=== PATIENT | male | born 1945 | race Caucasian/White ===

== ENCOUNTER 2019-06-02 16:18 | Observation (INO) ==
[2019-06-02] MEDS ORDERED: Naloxone 0.4 MG/ML INJ IVP PRN (23:16)
--- NOTE | 2019-06-02 23:31 | Internal Med History&Physical ---
Date of Encounter: 06/02/19 Time of Encounter: 22:57 Internal Medicine - H&P: HPI Chief complaint: ESRD Admitted From: Hospital to Hospital Transfer Plans for Post Hospital Care: Home History of present illness: Mr. Horowitz is a 74 year old male Patient presented from [facility] with ESRD. He states that yesterday he had a peritoneal dialysis catheter placed, and sent home. This morning he woke up and felt wheezy and had a heaviness in his chest. His symptoms are worse with laying down. He came to [facility] for further evaluation. [facility] vitals signs: BP 126/87, Temp 97.6, heart rate 76, respiratory rate 20, O2 sat 99% on 2L CBC: WBC 16.9, Hemoglobin 13.4, Hematocrit 40.1, Platelets 364 BMP: Sodium 136, Potassium 5.4, Chloride 102, CO2 24.2, BUN 75, Creatinine 4.66, Glucose 135 LFTs: AST19, ALT12, AP 78, Tbili 0.28 Urinalysis: Negative for infection BNP [id number] Chest x-ray: CHF with interstitial pulmonary edema EKG at [facility]: Normal sinus rhythm, rate 74, QTC 472 no ischemic changes He was transferred to [facility] for further management. Upon my assessment patient is resting comfortably in the hospital bed in no acute distress. He denies chest pain, shortness of breath, abdominal pain, nausea, vomiting, diarrhea and constipation. He denies smoking, alcohol and other drugs. He still produces some urine. He is a full code. Past Med Surg Social Fam HX - Past Medical History Medical history: hypertension, myocardial infarction Additional medical history: Stroke. gout. heart stents. VT Psychiatric history: no psych history - Past Surgical History Additional surgical history: heart cath. heart stents x 2. kidney stent. defibrillator - Social History Smoking Status: Former smoker Smokeless Tobacco Status: No Alcohol use: none Drug use: none - Family History Mother Adopted: No Family Member Ethnicity: Non- Living Status: Age at : 98 Hx Family Cardiac Disorders: Yes Hx Family Respiratory Disorders: No Hx Family Cancer: No Hx Family GI Disorders: No Hx Family Musculoskeletal Disorders: Yes Father Hx Family Cardiac Disorders: Yes (Heart attack) Brother Hx Family Cardiac Disorders: Yes (Heart attack) Internal Medicine - H&P: Meds Allopurinol [Zyloprim 100 MG] 100 mg PO DAILY 06/01/19 [History] Amiodarone HCl 200 mg PO DAILY 06/01/19 [History] Amlodipine Besylate 5 mg PO DAILY 06/01/19 [History] Aspirin [Adult Aspirin Regimen] 81 mg PO DAILY 06/01/19 [History] Carvedilol 12.5 mg PO BID 06/01/19 [History] Cod Liver Oil 1 cap PO DAILY 06/01/19 [History] Diphenhydramine HCl [Allergy] 25 mg PO QPM 06/01/19 [History] Docusate [Colace] 100 mg PO DAILY 06/01/19 [History] Furosemide [Lasix] 20 mg PO BID 06/01/19 [History] HYDROcodone/Acet 5/325 mg [[place] 5-325 mg] 1 tab PO Q6H PRN 7 Days #10 tab 06/01/19 [Rx] Multivitamin [One Daily] 1 tab PO DAILY 06/01/19 [History] Allergy/AdvReac Type Severity Reaction Status Date / Time Iodinated Contrast- Oral and Allergy Rash Verified 06/01/19 10:58 IV Dye All Systems PM: A 10-system review of systems was performed and is negative for pertinent findings except as documented above in the HPI. - Constitutional Vitals: Temp Pulse Resp BP Pulse Ox 98.0 F 92 16 145/88 94 06/02/19 21:28 06/02/19 21:28 06/02/19 21:28 06/02/19 21:28 06/02/19 22:20 General appearance: Present: cooperative, A&O X 3, pleasant, no acute distress, answers questions appropriately Exam: - - Head Head exam: Present: normal inspection - Eye Eye exam: Present: EOMI, normal appearance - Respiratory Respiratory exam: Present: CTAB. Absent: rales, respiratory distress, rhonchi, wheezes - Cardiovascular Cardiovascular exam: Present: RRR, systolic murmur. Absent: diastolic murmur Additional comments: Grade 2 systolic murmur - GI/Abdominal GI/Abdominal exam: Present: normal bowel sounds, soft. Absent: tenderness - Extremities Exam Extremities exam: Present: warm, radial pulses palpable and symmetrical. Absent: calf tenderness, pedal edema, tenderness - Neurological Exam Neurological exam: Present: no focal deficits, strengths equal and symetr throughout. Absent: motor sensory deficit, facial droop, speech deficit - Skin Skin exam: Present: dry, normal color, warm - Assessment and Plan (1) End stage renal disease Current Visit: Yes Status: Acute Assessment and plan: PD catheter placed 1 day ago. Patient has worsening renal function, low urine output. Nephrology consulted from [facility] for likely early dialysis due to fluid accumulation. Follow up nephrology recommendations. NPO (2) CHF (congestive heart failure) Current Visit: Yes Status: Acute Assessment and plan: As suspected on x-ray, positive for CHF and pulmonary edema. No previous workup in our system regarding cardiac workup. Echocardiogram in the AM Hold off on lasix due to worsening renal function Qualifiers: Heart failure type: unspecified Heart failure chronicity: unspecified Qualified Code(s): I50.9 - Heart failure, unspecified (3) Hyperkalemia Current Visit: Yes Status: Acute Assessment and plan: Potassium 5.4 at [facility]. Likely elevated potassium level will need to be addressed with potential dialysis if it continues to rise. Repeat a.m. labs Continue to monitor (4) Gout Current Visit: Yes Status: Acute Assessment and plan: Patient has history of gout, medication being held secondary to renal function Check uric acid level Continue to hold medications until dialysis plan established Qualifiers: Gout site: toe Gout etiology: unspecified cause Chronicity: chronic Laterality: unspecified laterality Presence of tophus: without tophus Qualified Code(s): M1A.9XX0 - Chronic gout, unspecified, without tophus (tophi) (5) DVT prophylaxis Current Visit: Yes Status: Acute Assessment and plan: SCDs - Time Spent With Patient Total time spent is greater than 50% in coordination of care (as documented) at patient's floor/unit and/or counseling patient: Greater than 35 minutes
[2019-06-02] MEDS ORDERED: Acetaminophen 325 MG TABLET PO PRN (23:46)
[2019-06-03 03:42] LABS: Hematocrit 38.3 % (37.5-50.1); Hemoglobin 12.2 g/dL (12.9-16.9); Mean Corpuscular HGB Conc 31.9 g/dL (31.6-35.5); Mean Corpuscular Hemoglobin 28.9 pg (28.0-33.3); Mean Corpuscular Volume 90.8 fL (83.0-100.0); Mean Platelet Volume 9.9 fL (9.4-12.4); Red Blood Count 4.22 M/mcL (4.19-5.50); Red Cell Distribution Width 14.8 % (11.5-14.5); White Blood Count 15.1 K/mcL (4.3-11.1)
[2019-06-03 04:00] LABS: Albumin 3.1 g/dL (3.5-5.7); Albumin/Globulin Ratio 1.1 (1.1-2.2); Bilirubin,Total 0.3 mg/dL (0.3-1.0); Calcium 9.4 mg/dL (8.6-10.3); Globulin 2.7 g/dL (2.4-3.5); Magnesium 2.3 mg/dL (1.6-2.6); Phosphorous 3.7 mg/dL (2.7-4.5); Potassium 4.6 mEq/L (3.5-5.1); Total Protein 5.8 g/dL (6.4-8.9)
[2019-06-03] MEDS ORDERED: *HR* HYDROcodone/Acet 5/325 mg TABLET PO PRN ×2 (14:28→14:46)
--- NOTE | 2019-06-03 14:29 | Internal Med Progress Note ---
Hospitalist Progress Note - Encounter Date of Encounter: 06/03/19 Time of Encounter: 12:25 - Subjective Interval History: Pt was seen at bedside. looking comfortable. no chest pain, denies any SOB,orthopena curently. Has been on RA and stable. Denies any fever, chills. No overnight evetns. - Exam Vitals: Temp Pulse Resp BP Pulse Ox 98.0 F 76 16 129/81 95 06/03/19 11:42 06/03/19 11:42 06/03/19 11:42 06/03/19 11:42 06/03/19 11:42 Exam: General: Alert and oriented, no physical distress, able to follow commands. HEENT: No thyromegaly, no lymphadenopathy, no discharge. Eyes: No discharge. Respiratory: Normal vesicular breathing, no added sounds, breathing equal in both sides. No crackles appareicated CVS: Normal heart sounds, no murmurs, no edema. Extremities: No peripheral edema, peripheral pulses intact. Lymph nodes: No lymphadenopathy Gastrointestinal: Soft, nontender abdomen, normal abdominal sounds. No distention noted. Genitourinary: No paravertebral tenderness. Neurological: Alert and oriented. No focal deficits. Cranial nerves II-XII intact. - Assessment and Plan (1) CHF (congestive heart failure) Current Visit: Yes Status: Acute Assessment and Plan: -HAd x-ray, positive for CHF and pulmonary edema. No previous workup in our system regarding cardiac workup. -Echo has been ordered -Currently pt is comfortable and breahting normally. -No s/s of overt congestive heart failure, no chest pain. -Order a repat x ray -Continue home dose of lasix -Further recommendations as per nephrology (2) End stage renal disease Current Visit: Yes Status: Acute Assessment and Plan: -PD catheter placed 2 day ago. -No indications for the urgent dialysis -Currnetly not in overlaod. -Nephrology on baord -Further recomemndations regarding the dialysis as per nephro (3) DVT prophylaxis Current Visit: Yes Status: Acute Assessment and Plan: SCDs (4) Gout Current Visit: Yes Status: Acute Assessment and Plan: -Patient has history of gout, medication being held secondary to renal function -Uric acid elevated -No signs of acute gut -Continue to hold meds in context of renal functions (5) Hyperkalemia Current Visit: Yes Status: Acute Assessment and Plan: Potassium was 5.4 at [place]. -Most recent potassium is 4.6 -We will repeat labs tomorrow morning -Continue to monitor (6) Constipation Current Visit: Yes Status: Acute Assessment and Plan: -Last bowel movemnt was on Thursday -Continue home colace -Order mirlax - Time Spent with Patient Total time spent is greater than 50% in coordination of care (as documented) at patient's floor/unit and/or counseling patient: Internal Medicine: Result - Labs CBC & Chem 7: 06/03/19 02:44 06/03/19 02:44 Labs: Short CBC 06/03/19 Range/Units 02:44 WBC 15.1 H (4.3-11.1) K/mcL Hgb 12.2 L (12.9-16.9) g/dL Hct 38.3 (37.5-50.1) % Plt Count 320 (140-400) K/mcL BMP 06/03/19 02:44 Sodium 137 Potassium 4.6 Chloride 109 H Carbon Dioxide 22 L BUN 73 H Creatinine 4.52 H Glucose 128 H Calcium 9.4 Liver Function 06/03/19 Range/Units 02:44 Total Bilirubin 0.3 (0.3-1.0) mg/dL AST 11 L (13-39) Units/L ALT 5 L (7-52) Units/L Alkaline Phosphatase 59 (34-104) Units/L Albumin 3.1 L (3.5-5.7) g/dL Consult Discharge Plan - Plan Referrals: Bailey Barnes MD [Primary Care Provider] - (1) CHF (congestive heart failure) Qualifiers: Heart failure type: unspecified Heart failure chronicity: unspecified Qualified Code(s): I50.9 - Heart failure, unspecified (4) Gout Qualifiers: Gout site: toe Gout etiology: unspecified cause Chronicity: chronic Laterality: unspecified laterality Presence of tophus: without tophus Qualified Code(s): M1A.9XX0 - Chronic gout, unspecified, without tophus (tophi) (6) Constipation Qualifiers: Constipation type: slow transit constipation Qualified Code(s): K59.01 - Slow transit constipation
[2019-06-03] MEDS ORDERED: Acetaminophen 325 MG TABLET PO PRN (14:46)
[2019-06-03] MEDS: Furosemide 20 MG TABLET PO SCH (16:47)
--- NOTE | 2019-06-03 18:02 | Nephrology Consult Note ---
Date of Encounter: 06/03/19 Time of Encounter: 16:00 Assessment and Plan (1) Stage 5 chronic kidney disease Current Visit: Yes Status: Acute No acute indication for [facility]ER at this time would prefer to have PD catheter heal for the next 2-3 weeks per protocol before initiating PD as planned. Pt agrees and wants this plan Avoid nephrotoxins if possible Can use diuretics to improve UOP as needed Renally dose all meds for Crcl of 15 or less (2) CHF (congestive heart failure) Current Visit: Yes Status: Acute Agree with strict I/Os Fluid restriction at 1.5 liter a day Echo results noted with EF at 30%, mod MR and severe pulmHTN Continue po lasix but can also use iv as needed to enhance diuresis Qualifiers: Heart failure type: unspecified Heart failure chronicity: unspecified Qualified Code(s): I50.9 - Heart failure, unspecified (3) Hyperkalemia Current Visit: Yes Status: Acute resolved renal diet advised History of Present Illness - Reason for Consult Consult date: 06/03/19 Chronic Kidney Disease Requesting physician: Rafael Cartwright - History of Present Illness 74 y o male with PMH of stage 5 CKD, HTN and CAD s/p NM admitted as a transfer from [facility] where he presented with generalized weakness and a "heavy chest". Pt reports that he had not recovered well as expected from getting his PD catheter placement 2 days prior. Scr noted at 4.52, GFR 13 which is unchanged from previous earlier this month. Pt seen and examined feels much better today. Luis Armando any chest pain, SOB and no signs or symptoms of uremia. Pt denies any abdominal pain even after PD catheter placement. No fevers or chills Past Med Surg Social Fam HX - Past Medical History Medical history: hypertension, myocardial infarction Additional medical history: Stroke. gout. heart stents. NM Psychiatric history: no psych history - Past Surgical History Additional surgical history: heart cath. heart stents x 2. kidney stent. defibrillator - Social History Smoking Status: Former smoker Smokeless Tobacco Status: No Alcohol use: none Drug use: none - Family History Mother Adopted: No Family Member Ethnicity: Non- Living Status: Age at : 98 Hx Family Cardiac Disorders: Yes Hx Family Respiratory Disorders: No Hx Family Cancer: No Hx Family GI Disorders: No Hx Family Musculoskeletal Disorders: Yes Father Hx Family Cardiac Disorders: Yes (Heart attack) Brother Hx Family Cardiac Disorders: Yes (Heart attack) Medications and Allergies Allopurinol [Zyloprim 100 MG] 100 mg PO DAILY 06/01/19 [History] Amiodarone HCl 200 mg PO DAILY 06/01/19 [History] Amlodipine Besylate 5 mg PO DAILY 06/01/19 [History] Aspirin [Adult Aspirin Regimen] 81 mg PO DAILY 06/01/19 [History] Carvedilol 12.5 mg PO BID 06/01/19 [History] Cod Liver Oil 1 cap PO DAILY 06/01/19 [History] Diphenhydramine HCl [Allergy] 25 mg PO QPM 06/01/19 [History] Docusate [Colace] 100 mg PO DAILY 06/01/19 [History] Furosemide [Lasix] 20 mg PO BID 06/01/19 [History] HYDROcodone/Acet 5/325 mg [[place] 5-325 mg] 1 tab PO Q6H PRN 7 Days #10 tab 06/01/19 [Rx] Multivitamin [One Daily] 1 tab PO DAILY 06/01/19 [History] Allergy/AdvReac Type Severity Reaction Status Date / Time Iodinated Contrast- Oral and Allergy Rash Verified 06/01/19 10:58 IV Dye Review of Systems All Systems review (narrative): the rest of the systems are negative Exam - Vital Signs Vital signs: Initial Vital Signs Temp Pulse Resp BP Pulse Ox 98.0 F 92 16 145/88 94 06/02/19 21:28 06/02/19 21:28 06/02/19 21:28 06/02/19 21:28 06/02/19 21:28 Vital Signs - Last 8 Hours Temp Pulse Resp BP Pulse Ox 06/03/19 16:05 97.9 F 85 17 126/70 95 06/03/19 11:42 98.0 F 76 16 129/81 95 Intake and Output 06/03/19 06/03/19 06/03/19 07:59 15:59 23:59 Intake Total 360 / 600 240 / 600 Output Total 150 / 850 500 / 850 200 / 850 Balance -150 / -250 -140 / -250 40 / -250 Intake: Oral 360 / 600 240 / 600 Output: Urine 150 / 850 500 / 850 200 / 850 Other: Meal Lunch Dinner Percent of Meal Consumed 95% 80% # Voids 1 1 - General Appearance General appearance: well-developed, well-nourished EENT: ATNC, mucous membranes moist Neck: no JVD, supple Respiratory: clear Cardiology: no edema, normal S1, normal S2 Gastrointestinal: no tenderness, no guarding Additional Comments: PD catheter with dressing in place. 2 small surgical incision glued with no drainage or tenderness Integumentary: warm and dry Neurologic: no focal deficit Musculoskeletal: no deformities Psychiatric: mood/affect appropriate, cooperative Results - Lab Results 06/03/19 02:44 06/03/19 02:44 Consult Discharge Plan - Plan Referrals: Bailey Barnes MD [Primary Care Provider] -
[2019-06-03] MEDS ORDERED: amLODIPine 5 MG TABLET PO SCH (21:00)
[2019-06-03] MEDS ORDERED: Furosemide 20 MG TABLET PO SCH (21:00)
[2019-06-03] MEDS ORDERED: NON-FORMULARY MEDICATION 1 EACH EACH (Carvedilol 12.5 MG) PO SCH (21:00)
[2019-06-04 06:39] LABS: Basophils # 0.1 K/mcL (0.0-0.2); Basophils % 0.5 %; Eosinophils # 0.3 K/mcL (0.0-0.6); Eosinophils % 2.3 %; Hematocrit 38.1 % (37.5-50.1); Hemoglobin 12.1 g/dL (12.9-16.9); Immature Granulocytes % 0.4 % (0-4); Lymphocytes # 2.1 K/mcL (0.6-4.6); Lymphocytes % 18.7 %; Mean Corpuscular HGB Conc 31.8 g/dL (31.6-35.5); Mean Corpuscular Hemoglobin 29.2 pg (28.0-33.3); Mean Platelet Volume 9.9 fL (9.4-12.4); Monocytes # 0.7 K/mcL (0.0-1.3); Monocytes % 6.2 %; Neutrophils # 8.1 K/mcL (1.6-8.9); Platelet Count 301 K/mcL (140-400); Red Blood Count 4.14 M/mcL (4.19-5.50); Red Cell Distribution Width 14.7 % (11.5-14.5); Segmented Neutrophils % 71.9 %; White Blood Count 11.2 K/mcL (4.3-11.1)
[2019-06-04 06:58] LABS: Calcium 9.4 mg/dL (8.6-10.3); Potassium 4.5 mEq/L (3.5-5.1)
[2019-06-04 07:37] VITALS: BP 128/82
[2019-06-04] MEDS ORDERED: Multivit/Ca/Min/Fe/FA 1 TAB TABLET PO SCH (09:00)
[2019-06-04] MEDS ORDERED: *HR* Amiodarone 200 MG TABLET PO SCH (09:00)
[2019-06-04] MEDS: Furosemide 20 MG TABLET PO SCH (09:02)
--- NOTE | 2019-06-04 10:11 | Discharge Summary ---
- NOTES TO OUTPATIENT PROVIDER Notes to Outpatient Provider: Was found to have low EF on echo which seems to be his baseline. Kindly check the records as I was unable to obtain from the outside hospital but pt explained that he has congestive heart failure and multiple MIs. Date of Encounter: 06/04/19 Time of Encounter: 08:30 - Discharge Diagnosis (1) CHF (congestive heart failure) Priority: Primary Status: Acute Qualifiers: Heart failure type: unspecified Heart failure chronicity: unspecified Qualified Code(s): I50.9 - Heart failure, unspecified (2) End stage renal disease Priority: Secondary Status: Acute (3) DVT prophylaxis Priority: Secondary Status: Acute (4) Gout Priority: Secondary Status: Acute Qualifiers: Gout site: toe Gout etiology: unspecified cause Chronicity: chronic Laterality: unspecified laterality Presence of tophus: without tophus Qualified Code(s): M1A.9XX0 - Chronic gout, unspecified, without tophus (tophi) (5) Hyperkalemia Priority: Secondary Status: Acute (6) Constipation Priority: Secondary Status: Acute Qualifiers: Constipation type: slow transit constipation Qualified Code(s): K59.01 - Slow transit constipation Hospital course: Mr. Horowitz is a 74 year old male with a past medical history significant for congestive heart failure, ESRD, multiple MIs, presented to the hospital because of orthopnea, chest pain, shortness of breath. Patient has had to emergency department multiple times because of these complaints. Initially presented to outside hospital from where he was brought to overload in the [facility]. At the time of the evaluation here, patient was hemodynamically stable. There were no gross metabolic abnormalities. His kidney functions were deranged but he did not require any interventions. Nephrology was consulted to home did not recommend any urgent need for renal replacement therapy. Patient felt fine and he was kept in the hospital for one more night for monitoring. This morning, patient labwork close to his baseline status. No hyperkalemia. Pt deneis any chest pain, SOB. Echocardiogram was done which showed his ejection fraction of 30% with wall motion abnormalities. There are no previous echo in our records. Patient does not come to this hospital normally. Discussed with the and the mentioned that patient has a history of congestive heart failure with decreased ejection fraction, he has had multiple MIs. He has been presented to the hospital multiple times because of chest pain, shortness of breath and orthopnea. According to the , the patient baseline. We did try to get the records from the outside hospital for comparison but we are unable to get the records. At this point, this seems to be patient baseline status. Patient does not have any chest pain, shortness of breath currently. Patient and the are agreeable to go home. Discussed with them the echo findings. They understadn the findings and they think theyr are baseline. Discussed with the patient and his continue to follow up with their PCP and auto design detailer within 1 week for further recommendations and evaluation. Patient is being discharged in stable condition. - Time Spent with Patient Total time spent providing and/or coordinating discharge services: 35 minutes - Discharge Medications Prescriptions: Continued Allopurinol [Zyloprim 100 MG] 100 mg PO DAILY Amiodarone HCl 200 mg PO QAM Amlodipine Besylate 5 mg PO QPM Carvedilol 12.5 mg PO BID Cod Liver Oil 1 cap PO QPM Diphenhydramine HCl [Allergy] 25 mg PO HS Furosemide [Lasix] 20 mg PO BID Multivitamin [One Daily] 1 tab PO MOTUWETHFR HYDROcodone/Acet 5/325 mg [[place] 5-325 mg] 1 tab PO Q6H PRN 7 Days #10 tab PRN Reason: Pain Acetaminophen [Tylenol] 500 - 1,000 mg PO Q6H PRN PRN Reason: Pain Aspirin Enteric Coated [Aspirin EC] 81 mg PO Q48H Docusate Sodium [Stool Softener] 100 mg PO DAILY Furosemide [Lasix] 20 mg PO 1500 PRN PRN Reason: Edema Nitroglycerin [Nitrostat] 0.4 mg SL Q5M PRN PRN Reason: Chest Pain Triamcinolone Acet 0.1% CRM [Kenalog] 4 gm TP BID PRN PRN Reason: RASH/ DRY SKIN Home Medications: Allopurinol [Zyloprim 100 MG] 100 mg PO DAILY 06/01/19 [History] Amiodarone HCl 200 mg PO QAM 06/01/19 [History] Amlodipine Besylate 5 mg PO QPM 06/01/19 [History] Carvedilol 12.5 mg PO BID 06/01/19 [History] Cod Liver Oil 1 cap PO QPM 06/01/19 [History] Diphenhydramine HCl [Allergy] 25 mg PO HS 06/01/19 [History] Furosemide [Lasix] 20 mg PO BID 06/01/19 [History] HYDROcodone/Acet 5/325 mg [[place] 5-325 mg] 1 tab PO Q6H PRN 7 Days #10 tab 06/01/19 [Rx] Multivitamin [One Daily] 1 tab PO MOTUWETHFR 06/01/19 [History] Acetaminophen [Tylenol] 500 - 1,000 mg PO Q6H PRN 06/03/19 [History] Aspirin Enteric Coated [Aspirin EC] 81 mg PO Q48H 06/03/19 [History] Docusate Sodium [Stool Softener] 100 mg PO DAILY 06/03/19 [History] Furosemide [Lasix] 20 mg PO 1500 PRN 06/03/19 [History] Nitroglycerin [Nitrostat] 0.4 mg SL Q5M PRN 06/03/19 [History] Triamcinolone Acet 0.1% CRM [Kenalog] 4 gm TP BID PRN 06/03/19 [History] Allergies/Adverse Reactions: Allergy/AdvReac Type Severity Reaction Status Date / Time Iodinated Contrast- Oral and Allergy Rash Verified 06/03/19 20:35 IV Dye Date of admission: 06/02/19 20:27 Primary care physician: Bailey Barnes Consults: 06/03/19 00:02 Consult to Nephrology [CONS] Routine Consulting Provider: Kidney Miriam/CYN/ANGELIKA/MARLEE Reason for Consult: ESRD, PD catheter placed yesterday. Called from [place] [facility]. Call Completed: Yes 06/03/19 15:18 Consult to Nurse Navigator [CONS] Routine Comment: chf - Constitutional Vitals: Temp Pulse Resp BP Pulse Ox 97.6 F 78 16 128/82 96 06/04/19 07:36 06/04/19 07:36 06/04/19 07:36 06/04/19 07:36 06/04/19 09:07 General appearance: Present: cooperative, A&O X 3, pleasant, no acute distress, answers questions appropriately Exam: General: Alert and oriented, no physical distress, able to follow commands. Respiratory: Normal vesicular breathing, no added sounds, breathing equal in both sides. No crackles appareicated CVS: Normal heart sounds, no murmurs, no edema. Extremities: No peripheral edema, peripheral pulses intact. Lymph nodes: No lymphadenopathy Gastrointestinal: Soft, nontender abdomen, normal abdominal sounds. No distention noted. Genitourinary: No paravertebral tenderness. Neurological: Alert and oriented. No focal deficits. Cranial nerves II-XII intact. - Patient Status Disposition: Home, Self-Care Condition: Good Functional capacity at discharge: independent ambulation Overall status at discharge: patient is back to baseline - Discharge Instructions Follow Up With: Bailey Barnes MD [Primary Care Provider] - - Diet and Activity Activity: increase activity as tolerated Diet: advance to your usual diet
--- NOTE | 2019-06-05 11:59 | Electrocardiograph Report ---
[address] [place] [address] Test Date: 2019-06-03 Pat Name: Anson Horowitz Department: 112 Room: 2A Gender: M District Manager Postal Service: : 1945 Requested By: Linda Steel Order Number: [id number] Reading MD: Suly Luong Measurements Intervals [place] Rate: 89 P: 44 IN: 182 QRS: -41 QRSD: 138 T: 32 QT: 375 QTc: 422 Interpretive Statements SINUS RHYTHM INTRAVENTRICULAR CONDUCTION DELAY INFERIOR MYOCARDIAL INFARCTION, PROBABLY OLD Electronically Signed On 06-05-2019 11:57:37 EDT by Suly Luong
== END 2019-06-04 12:10 | disposition home or self-care (01) ==
LOC: 2ANU → SUATTDRO 20:27
PROVIDERS: ADMIT Internal Medicine Nephrology; ATTEND Internal Medicine

== ENCOUNTER 2020-10-05 17:31 | Inpatient (IN) ==
[2020-10-05] MEDS ORDERED: Ondansetron 4 MG/2 ML VIAL IVP PRN (19:52)
[2020-10-05] MEDS ORDERED: Naloxone 0.4 MG/ML INJ IVP PRN (19:52)
[2020-10-05] MEDS ORDERED: Acetaminophen 325 MG TABLET PO PRN (19:52)
[2020-10-05] MEDS ORDERED: *HR* Metoprolol 5 MG/5 ML VIAL IVP ONE (20:45)
[2020-10-05] MEDS: Amiodarone Premix 360 MG/200 ML BAG IVC SCH ×2 (21:13→22:45)
[2020-10-05] MEDS: carvediloL 6.25 MG TABLET PO SCH (21:14)
[2020-10-05] MEDS: Aspirin Enteric Coated 81 MG Tablet PO SCH (21:14)
[2020-10-05] MEDS ORDERED: *HR* Heparin 5,000 UNIT/ML VIAL IVP ONE (21:40)
[2020-10-05] MEDS ORDERED: *HR* Heparin 5,000 UNIT/ML VIAL IVP PRN (21:40)
[2020-10-05 22:39] LABS: Hematocrit 45.5 % (37.5-50.1); Hemoglobin 14.8 g/dL (12.9-16.9); Mean Corpuscular HGB Conc 32.5 g/dL (31.6-35.5); Mean Corpuscular Hemoglobin 29.7 pg (28.0-33.3); Mean Corpuscular Volume 91.2 fL (83.0-100.0); Mean Platelet Volume 9.9 fL (9.4-12.4); Platelet Count 172 K/mcL (140-400); Red Blood Count 4.99 M/mcL (4.19-5.50); Red Cell Distribution Width 15.4 % (11.5-14.5); White Blood Count 9.8 K/mcL (4.3-11.1)
[2020-10-05 22:43] LABS: Heparin anti-factor XA UFH 0.59 IU/mL (0.30-0.70)
[2020-10-05 22:44] LABS: INR 1.2
[2020-10-05] MEDS: Heparin 25,000UNIT/250ML 1/2NS 25,000 UNIT/250 ML IV.SOLN IVC SCH (23:32)
[2020-10-06 02:32] LABS: Basophils # 0.1 K/mcL (0.0-0.2); Basophils % 0.5 %; Eosinophils # 0.6 K/mcL (0.0-0.6); Eosinophils % 5.2 %; Hematocrit 44.2 % (37.5-50.1); Hemoglobin 14.5 g/dL (12.9-16.9); Immature Granulocytes % 0.3 % (0-4); Lymphocytes # 2.7 K/mcL (0.6-4.6); Lymphocytes % 23.5 %; Mean Corpuscular HGB Conc 32.8 g/dL (31.6-35.5); Mean Corpuscular Hemoglobin 29.2 pg (28.0-33.3); Mean Corpuscular Volume 88.9 fL (83.0-100.0); Mean Platelet Volume 10.2 fL (9.4-12.4); Monocytes # 0.7 K/mcL (0.0-1.3); Neutrophils # 7.4 K/mcL (1.6-8.9); Platelet Count 162 K/mcL (140-400); Red Blood Count 4.97 M/mcL (4.19-5.50); Red Cell Distribution Width 15.5 % (11.5-14.5); Segmented Neutrophils % 64.5 %; White Blood Count 11.5 K/mcL (4.3-11.1)
[2020-10-06 02:37] LABS: INR 1.4; Prothrombin Time 15.5 Seconds (9.4-12.1)
[2020-10-06 02:54] LABS: Albumin 3.4 g/dL (3.5-5.7); Albumin/Globulin Ratio 1.5 (1.1-2.2); Bilirubin,Total 0.3 mg/dL (0.3-1.0); Calcium 8.8 mg/dL (8.6-10.3); Chol/HDL Ratio 6.6 (0-4.9); Globulin 2.3 g/dL (2.4-3.5); Magnesium 2.3 mg/dL (1.6-2.6); Potassium 4.1 mEq/L (3.5-5.1); Total Protein 5.7 g/dL (6.4-8.9)
[2020-10-06] MEDS ORDERED: 0.9 % Sodium Chloride 500 ML IVC ONE (04:11)
[2020-10-06] MEDS: carvediloL 6.25 MG TABLET PO SCH ×2 (07:44→16:34)
[2020-10-06] MEDS: Amiodarone Premix 360 MG/200 ML BAG IVC SCH (11:00)
[2020-10-06] MEDS ORDERED: Perflutren Lipid Microsphere 1.3 ML in 0.9 % Sodium Chloride 8.7 ML IVP PRN (11:19)
[2020-10-06 16:59] LABS: Hepatitis B Surface Antibody < 3.10 mIU/mL
[2020-10-06 17:09] LABS: Hepatitis B Surface Antigen Nonreactive (Nonreactive)
[2020-10-06] MEDS ORDERED: Perit. Dialysis with Dex 2.5 % 12,000 ML PERITONEAL ONE (19:00)
[2020-10-07] MEDS: Amiodarone Premix 360 MG/200 ML BAG IVC SCH ×2 (00:40→13:13)
[2020-10-07] MEDS: *HR* Heparin 5,000 UNIT/ML VIAL IVP PRN (03:30)
[2020-10-07 04:36] LABS: Basophils # 0.1 K/mcL (0.0-0.2); Basophils % 0.5 %; Eosinophils # 0.4 K/mcL (0.0-0.6); Eosinophils % 3.3 %; Hematocrit 44.7 % (37.5-50.1); Hemoglobin 14.7 g/dL (12.9-16.9); Immature Granulocytes % 0.3 % (0-4); Lymphocytes % 18.3 %; Mean Corpuscular HGB Conc 32.9 g/dL (31.6-35.5); Mean Corpuscular Volume 88.2 fL (83.0-100.0); Mean Platelet Volume 10.8 fL (9.4-12.4); Monocytes # 0.7 K/mcL (0.0-1.3); Monocytes % 6.5 %; Neutrophils # 7.8 K/mcL (1.6-8.9); Platelet Count 175 K/mcL (140-400); Red Blood Count 5.07 M/mcL (4.19-5.50); Red Cell Distribution Width 15.5 % (11.5-14.5); Segmented Neutrophils % 71.1 %
[2020-10-07 04:45] LABS: Calcium 9.1 mg/dL (8.6-10.3); Potassium 3.8 mEq/L (3.5-5.1)
[2020-10-07] MEDS: Gentamicin Oint 15 GM TUBE TP SCH (08:03)
[2020-10-07] MEDS: carvediloL 6.25 MG TABLET PO SCH ×2 (08:03→17:30)
[2020-10-07] MEDS: Heparin 25,000UNIT/250ML 1/2NS 25,000 UNIT/250 ML IV.SOLN IVC SCH (09:30)
[2020-10-07] MEDS ORDERED: Perit. Dialysis with Dex 2.5 % 12,000 ML PERITONEAL ONE (19:00)
[2020-10-07] MEDS: predniSONE 20 MG TABLET PO SCH (20:32)
[2020-10-07] MEDS: Aspirin Enteric Coated 81 MG Tablet PO SCH (20:32)
[2020-10-08 01:18] LABS: Basophils % 0.3 %; Eosinophils # 0.2 K/mcL (0.0-0.6); Eosinophils % 1.5 %; Hematocrit 45.4 % (37.5-50.1); Hemoglobin 14.8 g/dL (12.9-16.9); Immature Granulocytes % 0.4 % (0-4); Lymphocytes % 9.4 %; Mean Corpuscular HGB Conc 32.6 g/dL (31.6-35.5); Mean Corpuscular Hemoglobin 28.8 pg (28.0-33.3); Mean Corpuscular Volume 88.3 fL (83.0-100.0); Mean Platelet Volume 10.9 fL (9.4-12.4); Monocytes # 0.2 K/mcL (0.0-1.3); Monocytes % 2.3 %; Neutrophils # 8.8 K/mcL (1.6-8.9); Nucleated Red Blood Cells 0.2 /100 WBC (0); Platelet Count 176 K/mcL (140-400); Red Blood Count 5.14 M/mcL (4.19-5.50); Red Cell Distribution Width 15.7 % (11.5-14.5); Segmented Neutrophils % 86.1 %; White Blood Count 10.3 K/mcL (4.3-11.1)
[2020-10-08] MEDS: *HR* Heparin 5,000 UNIT/ML VIAL IVP PRN (01:29)
[2020-10-08 01:30] LABS: Calcium 9.2 mg/dL (8.6-10.3)
[2020-10-08] MEDS: Amiodarone Premix 360 MG/200 ML BAG IVC SCH ×2 (02:31→17:21)
[2020-10-08] MEDS: carvediloL 6.25 MG TABLET PO SCH ×3 (07:30→17:01)
[2020-10-08] MEDS: predniSONE 20 MG TABLET PO SCH (07:34)
[2020-10-08] MEDS: Heparin 25,000UNIT/250ML 1/2NS 25,000 UNIT/250 ML IV.SOLN IVC SCH (07:35)
[2020-10-08] MEDS: Gentamicin Oint 15 GM TUBE TP SCH (07:36)
[2020-10-08] MEDS ORDERED: 0.9 % Sodium Chloride 500 ML ONE (10:47)
[2020-10-08] MEDS ORDERED: *HR* FentaNYL (PF) 100 MCG/2 ML VIAL IVP PRN (13:08)
[2020-10-08] MEDS ORDERED: Lidocaine Viscous Oral Soln 15 ML SOLUTION MM PRN (13:08)
[2020-10-08] MEDS ORDERED: 0.9 % Sodium Chloride 500 ML IVC ONE (13:09)
[2020-10-08] MEDS ORDERED: *HR* Midazolam HCl 5 MG/5 ML VIAL IVP PRN (13:09)
[2020-10-08] MEDS ORDERED: Perit. Dialysis with Dex 2.5 % 12,000 ML PERITONEAL ONE (19:00)
[2020-10-08 19:54] VITALS: BP 103/75
[2020-10-08] MEDS ORDERED: predniSONE 20 MG TABLET PO SCH (21:00)
== END 2020-10-08 21:55 | disposition short-term general hospital (02) | DRG 280 ==
LOC: 2NNU
PROVIDERS: ADMIT Internal Medicine; ATTEND Internal Medicine